=== PATIENT | male | born 1985 | race African-American/Black ===

== ENCOUNTER → 2016-05-17 | Outpatient (CLI) | payer BC, OTHER ==
[~2016-05-17] MED LIST: GADOBUTROL 7.5 MMOL/7.5 ML VIAL IV ONE
--- NOTE | 2016-05-17 16:19 | RAD ---
PROCEDURE MRI of the lumbar spine without and with contrast 05/17/2016 HISTORY Low back pain which radiates down the right leg for 2 months. TECHNIQUE Unenhanced T1 weighted, T2 weighted and inversion recovery sagittal and T1 weighted and T2 weighted axial images of the lumbar spine were obtained. After the intravenous administration of 12 cc of Gadavist, enhanced T1 weighted sagittal and axial images of the lumbar spine were obtained. FINDINGS Comparison is made to radiographs of the lumbar spine dated 05/14/2015. The alignment of the lumbar vertebrae is within normal limits. The morphology and signal characteristics of all of the discs of the lumbar spine are within normal limits. The marrow signal of the visualized bony structures is within normal limits. The conus medullaris is normal in morphology, position, and signal characteristics. No area of abnormal contrast enhancement is seen. On the axial images the changes of mild degenerative disc disease are seen involving the lower lumbar disc spaces. These consist of minimal to mild generalized disc bulges, degenerative changes involving the facet joints and mild ligamentum flavum hypertrophy. These findings do not result in significant central spinal canal or neural foraminal stenosis at any level. IMPRESSION The changes of mild degenerative disc disease are seen involving the lower lumbar spine. These findings do not result in significant central spinal canal or neural foraminal stenosis at any level. Electronically signed by: Pascual Cabrera MD (May 17, 2016 16:17:26)
== END | disposition home or self-care (01) ==
LOC: MRI 10:55
PROVIDERS: ATTEND Family Medicine
DX: M51.36 Other intervertebral disc degeneration, lumbar region (principal)
CPT/HCPCS: 72158; A9585

== ENCOUNTER → 2016-05-31 | Outpatient (CLI) | payer BC, OTHER ==
[~2016-05-31] MED LIST changes: +CYCL10TA2 PO; -GADOBUTROL 7.5 MMOL/7.5 ML VIAL IV ONE; +NAPR500T3 PO; +TRAM-29 PO
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
== END | disposition home or self-care (01) ==
LOC: PNCL 13:10
PROVIDERS: ATTEND Anesthesiology
DX: M54.2 Cervicalgia (principal); M79.602 Pain in left arm; M79.601 Pain in right arm
CPT/HCPCS: 99214

== ENCOUNTER → 2016-06-11 | Outpatient (CLI) | payer BC, OTHER ==
[~2016-06-11] MED LIST changes: +methylPREDNISolone ACETATE 40 MG/ML VIAL. ONE; +methylPREDNISolone ACETATE 80 MG/ML VIAL. ONE
--- NOTE | 2016-06-11 22:33 | PN ---
DATE: 06/11/2016 DIAGNOSES: 1. Lumbar radiculopathy with lumbar degenerative disk disease. 2. Cervical radiculopathy. HISTORY OF PRESENT ILLNESS: The patient is a 31-year-old male who returns for followup status post initial evaluation and ordered C-spine MRI; however, this does not get performed, we will reorder this today to see if we can get his neck and shoulder and arm radicular pain better evaluated. The patient also has significant pain in his low back with some mild degenerative disk disease shown on the MRI scan of the lumbar spine from 05/17/2016 scan. The patient is having significant pain in the low back, right lower extremity, most significantly mostly in the posterior gluteus, posterior thigh, lateral thigh, posterior lower leg and calf on the right side, now walking and standing, change in positions, awakened him from sleep. Also, positioning with sitting is very difficult, ____ sharp sensation and low burning sensation in the back as well. The patient reports no new motor or sensory deficits, no new bowel or bladder incontinence or other complaints. PHYSICAL EXAMINATION: VITAL SIGNS: The patient's blood pressure 122/81, pulse 99, respirations 18, temperature 98.6 degrees Fahrenheit, height is 5 feet 10 inches, weight is 268 pounds. GENERAL: The patient is awake, alert, oriented, appropriate, very pleasant demeanor. HEENT: Head shows normocephalic, atraumatic. Extraocular movements are intact and symmetrical. Oral cavity shows mucous membranes moist and pink. Dentition is intact. NECK: Shows anterior throat supple without palpable lymphadenopathy noted. Swallow reflex is symmetrical. CHEST: Shows normal on inspection. Breath sounds are clear to auscultation bilaterally. HEART: Shows S1 and S2 clear. No murmurs auscultated. ABDOMEN: Obese, soft, nontender, nondistended. No palpable organomegaly is noted. No rebound or guarding demonstrated. BACK: Shows spine grossly midline. Cervical paraspinous muscle shows some moderate tenderness to palpation in the low cervical paraspinous musculature bilaterally as well as superior medial and lateral trapezius, which is symmetrical in appearance, but moderately tender diffusely bilaterally. Lower back shows moderate tenderness with palpation throughout the middle and lower distribution of paraspinous muscles in the lumbar spine as well is symmetrical in appearance, but without trigger points, without radiation. The patient has good rotational motion both the neck and low back without significant difficulty. EXTREMITIES: Lower extremities showed deep tendon reflexes at 2+ in the patellar and tendo calcaneus tendons. Motor exam is strong with 5/5 dorsiflexion, extension, quadriceps and hamstring flexion. Upper extremities show 2+ biceps and triceps deep tendon reflexes, hand bunch maker strength is 5/5 as is biceps and triceps flexion and equal. Options were discussed with the patient. At this time, the patient's old chart was reviewed and his current medication regimen updated. Current review of systems updated today as well. We will proceed with a lumbar epidural steroid injection today with fluoroscopic guidance. Risks were again discussed including, but not limited to bleeding, infection, possibility of epidural hematoma, subsequent neurologic compromise, dural puncture, headaches, spinal cord and/or nerve damage, side effects of steroid medication and poor results regarding pain control. The patient understands and wishes to proceed. The patient will return to clinic in approximately 2 weeks followup, we will have the MRI scan of the cervical spine ordered in the meantime to see if we can get this evaluated from his bilateral upper extremity radicular ____ symptoms. DIAGNOSES: Lumbar radiculopathy with lumbar degenerative disease. PROCEDURE: Lumbar epidural steroid injection and translaminar approach at the L4-L5 level using C-arm fluoroscopic-guided under sterile prep and drape using local anesthetic. MEDICATION INJECTED: A 120 mg Depo-Medrol plus 10 mL of preservative-free normal saline and 2 mL of Isovue for contrast. CONDITION AT DISCHARGE: Stable. The patient tolerated procedure well, had no complications. RENEE WATKINS MD DR: ADILENE/laura JOB#: [id number] / [id number]
== END | disposition home or self-care (01) ==
LOC: PNCL 09:01
PROVIDERS: ATTEND Anesthesiology
DX: M51.16 Intervertebral disc disorders with radiculopathy, lumbar region (principal); M54.12 Radiculopathy, cervical region
CPT/HCPCS: 62323; J1030; J1040

== ENCOUNTER → 2016-06-15 | Outpatient (CLI) | payer BC, OTHER ==
[~2016-06-15] MED LIST changes: -methylPREDNISolone ACETATE 40 MG/ML VIAL. ONE; -methylPREDNISolone ACETATE 80 MG/ML VIAL. ONE
--- NOTE | 2016-06-15 14:55 | RAD ---
PROCEDURE MRI cervical spine without contrast. HISTORY Bilateral radiculopathy with syncopal episodes TECHNIQUE Multiplanar, multisequential noncontrast imaging was performed of the cervical spine. COMPARISON None FINDINGS Cervical cord caliber is within normal limits without significant focal signal abnormality. There is ectopia of the pointed cerebellar tonsils, projecting approximately 9 millimeters inferior to the foramen magnum. Cervical vertebral body stature and AP alignment are preserved. Intervertebral disc spaces are adequate. There is no focal marrow edema. There is very mild mucosal thickening of the visualized maxillary sinuses. C2-3: Spinal canal and neural foramina are adequate. C3-4: Spinal canal and neural foramina are adequate. C4-5: Spinal canal and neural foramina are adequate. C5-C6: Spinal canal and neural foramina are adequate. There is mild facet hypertrophic change. C6-7: Neural foramina and spinal canal are adequate. C7-T1: Spinal canal and neural foramina are adequate. IMPRESSION 1. 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 2. There is no significant cervical spinal stenosis or neural foramina compromise. Electronically signed by: Rene Preciado MD (Jun 15, 2016 14:53:59)
== END | disposition home or self-care (01) ==
LOC: MRI 13:59
PROVIDERS: ATTEND Anesthesiology
DX: M54.12 Radiculopathy, cervical region (principal)
CPT/HCPCS: 72141

== ENCOUNTER → 2016-06-25 | Outpatient (CLI) | payer BC, OTHER ==
--- NOTE | 2016-06-25 11:37 | PAIN ---
DATE OF SERVICE: 06/25/2016 DIAGNOSES: 1. Cervical radiculopathy with cervicalgia. 2. Lumbar radiculopathy with lumbar degenerative disk disease. HISTORY OF PRESENT ILLNESS: The patient is a 31-year-old male who returns for followup status post lumbar epidural steroid injection x 1. The patient reports only very minimal decrease in pain, and the shot was quite uncomfortable for about a day following the injections. He has requested no further injections at this time. We did get an MRI scan of his cervical spine, which is essentially normal. The patient still has significant pain in the base of the neck, shoulders, upper back, mid back, and low back radiating to left lower extremity as it was previously. The patient reports it as a 5 on a scale of 10, very difficult to move and turn the neck and shoulders with any bending or stooping, standing for long periods of time as well. The patient reports no new motor or sensory deficits. No new bowel or bladder incontinence. PHYSICAL EXAMINATION: VITAL SIGNS: The patient's blood pressure 134/99, pulse 90, respirations 18, and temperature 98.6 degrees Fahrenheit. Weight is 266 pounds. GENERAL: The patient is awake, alert, oriented, appropriate, very pleasant demeanor. HEENT: Head shows normocephalic, atraumatic. Extraocular movements are intact and symmetrical. Oral cavity shows mucous membranes moist and pink. Dentition is intact. NECK: Shows anterior throat supple without palpable lymphadenopathy noted. Swallow reflex is symmetrical. CHEST: Shows normal on inspection. Breath sounds clear to auscultation bilaterally. HEART: Shows S1 and S2 clear. ABDOMEN: Soft, obese, nontender, and nondistended. BACK: Shows spine grossly in midline. Normal-appearing cervical lordotic curvature, thoracic kyphotic curvature, and lumbar lordotic curvature. Cervical paraspinous muscle shows some moderate tenderness with palpation in the inferior and middle aspect of cervical paraspinous muscles as well as the superior, medial, and lateral trapezius and rhomboid distribution diffusely tender throughout. No specific trigger points or radiation is demonstrated, but significant tenderness with palpation. Lumbar spine is likewise very tender in the middle and lower distribution of paraspinous muscles bilaterally without significant radiation. EXTREMITIES: Show upper extremity deep tendon reflexes 2+ out of 4 in the biceps and triceps tendons. Lower extremities showed 2+ in the patellar tendons. 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 Options were discussed with the patient. The patient's old chart was reviewed as was his current medication regimen and updated. Current review of systems was updated today as well. The patient requests some FMLA papers to be filled out for him today. We did do this for him with a restriction for work, to not lifting greater than 25 pounds, not standing greater than 30-40 minutes on his feet without sitting to rest and vice versa. The patient is unsure he can do this and perform his work duties with his current pain situation. We will also set the patient for physical therapy for both cervical and lumbar therapy, strengthening and stretching exercises, mobility and traction. The patient understands and agrees, and once physical therapy is completed, may have better assessment as far as his returning to work abilities. RENEE WATKINS MD DR: ADILENE/laura JOB#: [id number] / [id number]
== END | disposition home or self-care (01) ==
LOC: PNCL 09:48
PROVIDERS: ATTEND Anesthesiology
DX: M51.16 Intervertebral disc disorders with radiculopathy, lumbar region (principal); M54.2 Cervicalgia
CPT/HCPCS: 99212

== ENCOUNTER → 2016-08-11 | Outpatient (CLI) | payer BC ==
[2016-08-11 14:25] LABS: BASO # 0.1 x10^3/uL (0.0-0.2); BASO % 1 % (0-3); EOS % 2 % (0-3); HEMATOCRIT 41.8 % (39.0-53.0); HEMOGLOBIN 14.9 g/dL (13.0-17.5); LYMPH % 34 % (24-48); MEAN CORPUSCULAR HEMOGLOBIN 29 pg (25-35); MEAN CORPUSCULAR HGB CONC 36 g/dL (31-37); MEAN CORPUSCULAR VOLUME 82 fL (79-100); MONO % 7 % (0-9); NEUT % 56 % (31-73); PLATELET COUNT 345 x10^3/uL (140-400); RED BLOOD COUNT 5.13 x10^6/uL (4.30-5.70); RED CELL DISTRIBUTION WIDTH 13.8 % (11.5-14.5); WHITE BLOOD COUNT 5.9 x10^3/uL (4.0-11.0)
[2016-08-11 14:34] LABS: PROTHROMBIN TIME PATIENT 12.1 SEC (11.7-14.0)
[2016-08-11 14:44] LABS: ALBUMIN 3.6 g/dL (3.4-5.0); ALBUMIN/GLOBULIN RATIO 0.9 (1.0-1.7); CALCIUM 8.9 mg/dL (8.5-10.1); GFR 105.5; POTASSIUM 3.7 mmol/L (3.5-5.1); TOTAL BILIRUBIN 0.4 mg/dL (0.2-1.0); TOTAL PROTEIN 7.7 g/dL (6.4-8.2)
== END | disposition home or self-care (01) ==
LOC: SURGPAT 13:43
PROVIDERS: ATTEND Neurological Surgery
DX: G93.5 Compression of brain (principal)
CPT/HCPCS: 36415; 80053; 85027; 85610; 85730; 87641

== ENCOUNTER → 2019-11-21 | Outpatient (CLI) | payer BC ==
[~2019-11-21] MED LIST changes: +NAPR-514 PO; -NAPR500T3 PO; -TRAM-29 PO; +TRAM-48 PO
== END | disposition home or self-care (01) ==
LOC: LAB 14:30
PROVIDERS: ATTEND Surgery
DX: Z01.818 Encounter for other preprocedural examination (principal); Z11.59 Encounter for screening for other viral diseases; K42.9 Umbilical hernia without obstruction or gangrene
CPT/HCPCS: U0003-CS

== ENCOUNTER 2019-11-28 06:30 | Day surgery (SDC) | payer BC ==
[~2019-11-28] VITALS: Ht 175.3 cm; Wt 119.5 kg
[~2019-11-28 06:30] MED LIST changes: +ACETAMINOPHEN 500 MG TABLET PO ONE; +BUPR150T15 PO; +CRESTOR5 MG PO; +LIDOCAINE 2% PF 5 ML VIAL. ONE; +METF500T16 PO; +ONDANSETRON PF 4 MG/2 ML VIAL. ONE; +PROPOFOL 10 MG/ML (20ML) VIAL. IV ONE; +ROCURONIUM 50 MG/5 ML VIAL. ONE; +SUCCINYLCHOLINE 200 MG/10 ML VIAL. ONE
[2019-11-28] MEDS ORDERED: fentaNYL PF VIAL 100 MCG/2 ML VIAL IV PRN ×2 (07:00)
[2019-11-28] MEDS ORDERED: INSULIN LISPRO 100 UNIT/ML 3ML VIAL for OP,RR ONLY. SQ PRN (07:00)
[2019-11-28] MEDS ORDERED: IV RINGERS,LACTATED 1000ML 1,000 ML IV SCH (07:00)
[2019-11-28] MEDS ORDERED: MORPHINE SULFATE 2 MG/ML VIAL. IV PRN (07:00)
[2019-11-28] MEDS ORDERED: ONDANSETRON PF 4 MG/2 ML VIAL. IV PRN (07:00)
[2019-11-28] MEDS ORDERED: PROCHLORPERAZINE 10 MG/2 ML VIAL. IV PRN (07:00)
[2019-11-28] MEDS ORDERED: HYDROmorphone 2 MG/ML VIAL IV PRN (07:00)
[2019-11-28] MEDS ORDERED: fentaNYL PF VIAL 100 MCG/2 ML VIAL ONE ×2 (07:25→08:17)
[2019-11-28] MEDS ORDERED: MIDAZOLAM HCL/PF 2 MG/2 ML VIAL. ONE (07:26)
[2019-11-28] MEDS ORDERED: MINERAL OIL for SURGERY 10 ML VIAL. MC ONE (07:27)
[2019-11-28] MEDS ORDERED: BUPIVACAINE-EPI 0.25%-1:200000 MPF 30 ML VIAL. ONE (07:27)
[2019-11-28] MEDS ORDERED: GLYCOPYRROLATE 1 MG/5 ML VIAL. ONE (08:47)
[2019-11-28] MEDS ORDERED: NEOSTIGMINE METHYLSULFATE 5 MG/5 ML SYRINGE. ONE (08:47)
[2019-11-28] MEDS ORDERED: ESMOLOL 100 MG/10 ML VIAL. IVP ONE (08:47)
--- NOTE | 2019-11-28 08:52 | PDOC4 ---
Operative Note Operative Note Date: 2019 at 849 Preoperative diagnosis: Incarcerated medical hernia Postoperative diagnosis: Same Procedure: Robotic assisted laparoscopic umbilical hernia repair with mesh Surgeon: David Specimen: None Dictation: Patient is a 34-year-old male is complained of a painful bulge at his umbilicus for several years is been getting worse. Procedure of robotic assisted laparoscopic umbilical hernia repair with mesh was explained to the patient detail risk benefits were also discussed including bleeding infection injury to intra-abdominal contents possibly necessitating further open operations alternatives to this procedure also discussed with the patient who seemed to understand and gave both verbal and written consent to have the procedure performed. Patient was taken to the operating room placed in the supine position general anesthesia was initiated once patient was sleeping in bed his abdomen was prepped and draped usual sterile fashion using ChloraPrep. Area in the left upper quadrant was injected quarter percent Marcaine with epinephrine incision was made 11 blade scalpel and a 5 mm Visiport was placed under direct visualization of the abdomen creating pneumoperitoneum 5 mm camera was placed within the abdomen which was inspected was noted he had umbilical hernia with incarcerated omentum the rest the abdomen peer to be normal. A 8 mm da Crystal port was placed in the left midabdomen a millimeter da Crystal port was placed in the left lower abdomen and the 5 mm Visiport was changed out for a millimeter da Crystal port. The da Crystal robot was then brought and docked all port sites surgeon went to the robotic console using a grasper and Endo Fausto scissors the preperitoneal fat and hernia contents were reduced the hernia defect was then closed with a running 2 OV lock nonabsorbable suture. A ventral light ST mesh was placed over the hernia defect this was sewn into place with a running 2 OV lock absorbable suture and the peritoneum was then closed over the mesh with the nonabsorbable suture. Sutures removed from the abdomen the pneumoperitoneum was reduced all ports were undocked and the da Crystal robot undocked from all ports ports were removed the port sites were all closed for subcuticular Monocryl Mastisol Steri-Strips and island dressings were applied. Patient was awakened and extubated the operating room taken to recovery in stable condition all sponge instrument needle counts listed as correct estimated blood loss 5 mL GAVIN CARDOSO MD Nov 28, 2019 08:52
--- NOTE | 2019-11-28 08:54 | DISCH ---
DISCHARGE INSTRUCTIONS Condition on Discharge Condition on Discharge: Stable Activity After Discharge Activity Instructions for Disc: Avoid exertion Other activity instructions: No lifting more than 20 pounds for 2 weeks Diet after Discharge Diet after Discharge: Regular Wound Incision Care Other wound/incision instructi: May shower in 24 hours Contacting the DRFemi after DC Call your doctor for: If your condition worsens Follow-Up Follow up with: Dr. Cardoso in 2 weeks GAVIN CARDOSO MD Nov 28, 2019 08:54
[2019-11-28] MEDS ORDERED: SEVOFLURANE 61 TO 120 MINUTES. IH ONE (09:05)
[2019-11-28] MEDS ORDERED: KETOROLAC 30 MG/ML VIAL. ONE (09:05)
[2019-11-28] MEDS ORDERED: oxyCODONE/APAP 5/325 1 TAB TABLET PO ONE ×2 (09:45)
[2019-11-28] MEDS ORDERED: OXYC1TAB15 PO (09:49)
[2019-11-28 10:15] VITALS: BP 140/81
== END 2019-11-28 10:55 | disposition home or self-care (01) ==
LOC: SURG 06:30
PROVIDERS: ATTEND Surgery
DX: K42.9 Umbilical hernia without obstruction or gangrene (principal); E78.00 Pure hypercholesterolemia, unspecified; E11.9 Type 2 diabetes mellitus without complications; Z79.899 Other long term (current) drug therapy; Z88.8 Allergy status to other drugs, medicaments and biological substances; Z87.891 Personal history of nicotine dependence; Z79.84 Long term (current) use of oral hypoglycemic drugs
CPT/HCPCS: 49653; 82962; A7015; C1781; J0330; J0690; J1885; J2250; J2405; J2704; J2710; J3010; J3490; J7120

== ENCOUNTER → 2020-07-11 | Outpatient (CLI) | payer BC ==
[~2020-07-11] MED LIST changes: -ACETAMINOPHEN 500 MG TABLET PO ONE; -LIDOCAINE 2% PF 5 ML VIAL. ONE; -ONDANSETRON PF 4 MG/2 ML VIAL. ONE; +OXYC1TAB15 PO; -PROPOFOL 10 MG/ML (20ML) VIAL. IV ONE; -ROCURONIUM 50 MG/5 ML VIAL. ONE; -SUCCINYLCHOLINE 200 MG/10 ML VIAL. ONE
--- NOTE | 2020-07-11 15:58 | KCIC ---
EXAM: XR CERVICAL SPINE 2-3V 07/11/2020 3:05 PM CLINICAL INDICATION: Right-sided neck and shoulder pain for one week COMPARISON: None TECHNIQUE: 3 views of the cervical spine FINDINGS: No acute fracture. Alignment is normal. Disc spaces are maintained. Facet joints are nazario l. Prevertebral soft tissues normal. IMPRESSION: Normal radiograph of the cervical spine. Electronically signed by: Radha Newton MD (07/11/2020 3:56 PM) [id number]
== END ==
LOC: KCIC 14:42
PROVIDERS: ATTEND Family Medicine
DX: M54.2 Cervicalgia (principal); M25.511 Pain in right shoulder
CPT/HCPCS: 72040